=== PATIENT | male | born 1955 | race Caucasian/White ===

== ENCOUNTER 2022-05-05 07:39 | Day surgery (SDC) | payer MEDICARE, OTHER ==
[~2022-05-05] VITALS: Ht 177.8 cm; Wt 80.3 kg
[~2022-05-05 07:39] MED LIST: BUPROPION HCL200 M2 PO; CALCIUM CARBON500 M1 PO; CARV3.125 PO; CENTRUM SILVER1 EAC2 PO; CLOP75 PO; Diovan160 MG PO; EPIN.3I IM; Flonase 0.05% N16 GM; IBUP600 PO; LISI20 PO; PSEU120ER PO; ROSU10TA PO; XARELTO20 MG PO
--- NOTE | 2022-05-05 14:28 | NUR ---
PT ARRIVED IN [facility] POST ANGIO RIGHT RADIAL SITE. 2 STENTS PLACED. PT ALERT AND ORIENTED AT BASELINE, SBA FOR TRANSFERS. VITALS HRR JACKI 45-60'S, BP SYSTOLIC 120-130'S, SATS ABOVE 95% ON RA, AFEBRILE. PT DENIES ANY CHEST PAIN/PRESSURE. TOLERATED DIET. NS NOW INFUSING AT 125/MLS X1. TO DC IN THE MORNING IF STABLE. NO OTHER ISSUES REPORTED AT THIS TIME, WO CONTINUE TO MONITOR UNTIL END OF SHIFT
[2022-05-05] MEDS ORDERED: ASPI81CH PO (17:14)
[2022-05-05] MEDS ORDERED: EZET10 PO (17:14)
--- NOTE | 2022-05-05 18:14 | NUR ---
PT DISCHARGE TO HOME TODAY, TR BAND WAS FULLY DEFLATED AND RECOVERED AT [address], DR NAGY WENT AND REASSESS THE SITE 15 AFTER THE DRESSING WAS PLACED AND DECIDED TO DISCHARGE PT. AT 1700 RE-ASSESS SITE HAD A LITTLE BRUISING AROUND THE SITE PRESSURE APPLIED FOR 15 MINS AND REASSESSED WITH THE CHARGE NURSE, SITE LOOKS GREAT AND INTACT NO HEMATOMA. PT EDUCATED ABOUT RADIAL SITE CARE. PT VERBALIZED UNDERSTANDING, DISCHARGE INSTRUCTIONS AND NEW MEDICATIONS DISCLOSED WITH THE PT. ALL BELONGINGS SENT WITH THE PT, ACCOMPANIED BY PCT VIA WHEELCHAIR
== END 2022-05-05 18:14 | disposition home or self-care (01) ==
LOC: MHTC 07:39 → PCU 10:52 → MHTC 18:14
DX: I25.10 Atherosclerotic heart disease of native coronary artery without angina pectoris (principal); I73.9 Peripheral vascular disease, unspecified; R93.1 Abnormal findings on diagnostic imaging of heart and coronary circulation; R06.02 Shortness of breath
CPT/HCPCS: 36415; 84484; 85347; 92978; 92979; 93458; 99152; 99153; A9270; C1725; C1753; C1761; C1769; C1874; C1887; C1894; C9602; J1644; J2250; J2405; J3010; J7030; Q9967

== ENCOUNTER 2023-09-22 09:37 | Day surgery (SDC) | payer MEDICARE, OTHER ==
[~2023-09-22] VITALS: Ht 177.8 cm; Wt 84.0 kg
[2023-09-22] VITALS (30 sets, daily range): BP systolic 90–147; BP diastolic 58–98
[~2023-09-22 09:37] MED LIST changes: +AMLO5 PO; +ASPI81CH PO; +EZET10 PO; +Lactated Ringer's 1,000 ML IV SCH; +propofoL 20 ML IV ONE
[2023-09-22] MEDS ORDERED: Ginseng100 MG (10:14)
[2023-09-22] MEDS ORDERED: Midazolam HCl 1MG / ML 2ML Vial ONE (10:49)
--- NOTE | 2023-09-22 10:50 | NUR ---
Ambulatory in Day Surgery Patient confirms NPO status and agrees with scheduled surgery. Pre-Op teaching done. Pt verbalizes understanding. History, Chart, Medications and Allergies reviewed before start of procedure.Patient States Post-Procedure ride home has been arranged.
--- NOTE | 2023-09-22 10:53 | NUR ---
09/22/23 1053 Helga Painter HISTORY, CHART, MEDICATIONS AND ALLERGIES REVIEWED BEFORE START OF PROCEDURE. PATIENT CONFIRMS NPO STATUS AND AGREES WITH SCHEDULED PROCEDURE. 3-LEAD EKG REVIEWED WITH PHYSICIAN PRIOR TO START OF PROCEDURE. MONITOR INTACT WITH CONTINUOUS PULSE OXIMETRY,CAPNOGRAPHY, 3-LEAD EKG, INTERMITTENT BP. SUPPLEMENTAL O2 TO BE TITRATED THROUGHOUT PROCEDURE TO MAINTAIN O2 SATURATION ABOVE 90%. PATIENT DETERMINED TO BE ASA APPROPRIATE FOR PROPOFOL SEDATION PRIOR TO START OF PROCEDURE BY DR. HERNANDEZ
--- NOTE | 2023-09-22 10:55 | NUR ---
"PT REPORTS HE ONLY DRANK 1/2 OF HIS PREP BUT HE'S TOTALLY CLEAR"
[2023-09-22] MEDS ORDERED: propofoL 20 ML IV ONE (11:39)
--- NOTE | 2023-09-22 12:56 | NUR ---
Patient up to Ambulate independently. Gait steady. Discharge instructions reviewed with patient. Patient verbalizes understanding. Copy given to patient to take home. Patient States Post-Procedure ride home has been arranged. Discharged via wheelchair to private car for ride home. PT DENIES PAIN,N/V,SOB,CP. REPORTS READY TO GO HOME.
== END 2023-09-22 12:56 | disposition home or self-care (01) ==
LOC: ORSCMMR 09:37 → ORD 10:30 → ORSCMMR 10:30
PROVIDERS: Internal Medicine Gastroenterology
PROC: 0DBH8ZX Excision of Cecum, Via Natural or Artificial Opening Endoscopic, Diagnostic (ICD-10-PCS; principal; 2023-09-22 10:30)
PROC: 0DBL8ZX Excision of Transverse Colon, Via Natural or Artificial Opening Endoscopic, Diagnostic (ICD-10-PCS; principal; 2023-09-22 10:30)
PROC: 0DBK8ZX Excision of Ascending Colon, Via Natural or Artificial Opening Endoscopic, Diagnostic (ICD-10-PCS; principal; 2023-09-22 10:30)
PROC: 0DBP8ZX Excision of Rectum, Via Natural or Artificial Opening Endoscopic, Diagnostic (ICD-10-PCS; principal; 2023-09-22 10:30)
PROC: 0DBM8ZX Excision of Descending Colon, Via Natural or Artificial Opening Endoscopic, Diagnostic (ICD-10-PCS; principal; 2023-09-22 10:30)
DX: Z12.11 Encounter for screening for malignant neoplasm of colon (principal); D12.0 Benign neoplasm of cecum; D12.2 Benign neoplasm of ascending colon; D12.3 Benign neoplasm of transverse colon; D12.4 Benign neoplasm of descending colon; K62.1 Rectal polyp; R19.5 Other fecal abnormalities; I10 Essential (primary) hypertension; E78.00 Pure hypercholesterolemia, unspecified; I25.10 Atherosclerotic heart disease of native coronary artery without angina pectoris; I73.9 Peripheral vascular disease, unspecified; F32.A Depression, unspecified; Z79.01 Long term (current) use of anticoagulants; Z79.02 Long term (current) use of antithrombotics/antiplatelets; Z79.899 Other long term (current) drug therapy; Z87.891 Personal history of nicotine dependence
CPT/HCPCS: 88305; J2250; J2704; J7120

== ENCOUNTER 2024-06-13 09:58 | Day surgery (SDC) | payer MEDICARE, OTHER ==
[~2024-06-13] VITALS: Ht 175.3 cm; Wt 88.1 kg
[~2024-06-13 09:58] MED LIST changes: +Ginseng100 MG; -propofoL 20 ML IV ONE
[2024-06-13] MEDS ORDERED: TRELEGY ELLIPT1 EACH IH (10:24)
[2024-06-13 10:33] VITALS: BP 133/85
[2024-06-13] MEDS ORDERED: Midazolam HCl 1MG / ML 2ML Vial ONE (10:49)
[2024-06-13] MEDS ORDERED: propofoL 40 ML IV ONE (10:50)
--- NOTE | 2024-06-13 10:57 | NUR ---
06/13/24 1057 Gaby Stearns CONFIRMED AND REVIEWED H&P, MEDCICATIONS, ALLERGIES, MEDICAL HISTORY, RESPIRATORY HISTORY, VITAL SIGNS, 3-LEAD EKG, CONSENTS, AND PHYSICIAN ORDERS. PATIENT CONFIRMS NPO STATUS AND AGREES WITH SCHEDULED PROCEDURE. MONITOR INTACT WITH CONTINUOUS PULSE OXIMETRY, CAPNOGRAPHY, 3-LEAD EKG, INTERMITTENT BP. SUPPLEMENTAL O2 TO BE TITRATED THROUGHOUT PROCEDURE TO MAINTAIN O2 SATURATION ABOVE 90%. PATIENT DETERMINED TO BE ASA APPROPRIATE FOR PROPOFOL SEDATION PRIOR TO START OF PROCEDURE BY DR. HERNANDEZ.
[2024-06-13 11:40] VITALS: BP 118/78
--- NOTE | 2024-06-13 11:43 | NUR ---
REPORT RECEIVED FROM MIKAYLA DONALDSON. VSS. PT ON RA. PT ABLE TO REPOSITION SELF IN BED. PT REQUESTING PO FLUIDS AND TOLERATING THEM WELL. PT DENIES PAIN, NAUSEA OR OTHER DISCOMFORTS.
[2024-06-13 11:55] VITALS: BP 127/89
== END 2024-06-13 12:05 | disposition home or self-care (01) ==
LOC: ORSCMMR 09:58 → ORD 10:30 → ORSCMMR 12:05
PROVIDERS: Internal Medicine Gastroenterology
PROC: 0DBM8ZX Excision of Descending Colon, Via Natural or Artificial Opening Endoscopic, Diagnostic (ICD-10-PCS; principal; 2024-06-13 10:30)
PROC: 0DBH8ZX Excision of Cecum, Via Natural or Artificial Opening Endoscopic, Diagnostic (ICD-10-PCS; principal; 2024-06-13 10:30)
PROC: 0DBK8ZX Excision of Ascending Colon, Via Natural or Artificial Opening Endoscopic, Diagnostic (ICD-10-PCS; principal; 2024-06-13 10:30)
PROC: 0DBC8ZX Excision of Ileocecal Valve, Via Natural or Artificial Opening Endoscopic, Diagnostic (ICD-10-PCS; principal; 2024-06-13 10:30)
PROC: 0DBL8ZX Excision of Transverse Colon, Via Natural or Artificial Opening Endoscopic, Diagnostic (ICD-10-PCS; principal; 2024-06-13 10:30)
DX: Z09 Encounter for follow-up examination after completed treatment for conditions other than malignant neoplasm (principal); Z86.0101 Personal history of adenomatous and serrated colon polyps; D12.4 Benign neoplasm of descending colon; D12.3 Benign neoplasm of transverse colon; D12.0 Benign neoplasm of cecum; K57.30 Diverticulosis of large intestine without perforation or abscess without bleeding; I25.10 Atherosclerotic heart disease of native coronary artery without angina pectoris; I10 Essential (primary) hypertension; I73.9 Peripheral vascular disease, unspecified; Z79.899 Other long term (current) drug therapy; Z79.02 Long term (current) use of antithrombotics/antiplatelets; Z79.01 Long term (current) use of anticoagulants
CPT/HCPCS: 88305; J2250; J2704; J7120

== ENCOUNTER 2024-06-23 07:28 | Day surgery (SDC) | payer MEDICARE, OTHER ==
[2024-06-23] VITALS (15 sets, daily range): BP systolic 115–168; BP diastolic 79–152
[~2024-06-23] VITALS: Ht 175.3 cm; Wt 88.6 kg
[~2024-06-23 07:28] MED LIST changes: -Lactated Ringer's 1,000 ML IV SCH; +TRELEGY ELLIPT1 EACH IH
[2024-06-23] MEDS ORDERED: FentaNYL Citrate 50 MCG/ML 2 ML Injection ONE (11:49)
[2024-06-23] MEDS ORDERED: Heparin Sodium 1000 Units/ML 10ML MDV ONE ×2 (11:50→12:08)
[2024-06-23] MEDS ORDERED: Midazolam HCl 1MG / ML 2ML Vial ONE ×2 (11:50→13:00)
[2024-06-23] MEDS ORDERED: Verapamil HCL 2.5 MG/ML 2ML Injection ONE (11:50)
[2024-06-23] MEDS ORDERED: NS 1,000 ML IV ONE ×4 (11:50→13:41)
[2024-06-23] MEDS ORDERED: Nitroglycerin 2 MG/20 ML BTL ONE (11:51)
[2024-06-23] MEDS ORDERED: NS 250 ML IV ONE (11:51)
[2024-06-23] MEDS ORDERED: Aspirin 81 MG Chew ONE (12:47)
[2024-06-23] MEDS ORDERED: Clopidogrel Bisulfate 300 MG TABLET ONE (12:47)
--- NOTE | 2024-06-23 14:15 | NUR ---
pt given lunch tray. radial site soft and non-tender per pt. no bleeding/hematoma noted.
[2024-06-23] MEDS ORDERED: Aspir 8181 MG PO (14:47)
[2024-06-23] MEDS ORDERED: Aspir 8181 MG (14:47)
--- NOTE | 2024-06-23 14:54 | NUR ---
aspirin script called to [facility].
--- NOTE | 2024-06-23 15:09 | NUR ---
2cc removed from tr band. site soft and non-tender per pt. no bleeding/hematoma noted.
--- NOTE | 2024-06-23 15:25 | NUR ---
2cc removed from tr band. site soft and non-tender per pt. no bleeding/hematoma noted.
--- NOTE | 2024-06-23 15:35 | NUR ---
tr band fully deflated. pt ambulated to restroom w/o assistance. radial site soft and non-tender per pt. no bleeding/hematoma noted.
--- NOTE | 2024-06-23 16:23 | NUR ---
radial site soft and non-tender per pt. no bleeding/hematoma noted.
--- NOTE | 2024-06-23 17:08 | NUR ---
pt given dc instructions and verbalized understanding. iv out. radial site soft and non-tender per pt. no bleeding/hematoma noted. cloth dot, arm board, and sling applied. pt denies any symptoms at this time. pt taken to [place] via [place]. friend, dunia, to take pt home.
== END 2024-06-23 17:00 | disposition home or self-care (01) ==
LOC: MHTC 07:28
DX: I25.10 Atherosclerotic heart disease of native coronary artery without angina pectoris (principal); I42.2 Other hypertrophic cardiomyopathy; J43.9 Emphysema, unspecified; I10 Essential (primary) hypertension; E11.51 Type 2 diabetes mellitus with diabetic peripheral angiopathy without gangrene; E78.5 Hyperlipidemia, unspecified; Z95.5 Presence of coronary angioplasty implant and graft; Z79.01 Long term (current) use of anticoagulants; Z79.02 Long term (current) use of antithrombotics/antiplatelets; Z79.899 Other long term (current) drug therapy; Z86.16 Personal history of COVID-19; Z91.030 Bee allergy status; Z88.6 Allergy status to analgesic agent
CPT/HCPCS: 76937; 85347; 93005; 93010; 93458; 99152; 99153; A9270; C1725; C1769; C1874; C1887; C1894; C9600; J1644; J2250; J3010; J7030; J7050; Q9967